=== PATIENT | male | born 1990 | race Caucasian/White ===

== ENCOUNTER 2017-03-01 08:25 | Emergency (ER) | payer OTHER ==
[~2017-03-01] VITALS: Ht 175.3 cm; Wt 80.1 kg
[~2017-03-01 08:25] MED LIST: KEFLEX500 MG PO
[2017-03-01 09:25] LABS: HEMATOCRIT 43.7 % (38.0-50.0); HEMOGLOBIN 15.6 G/DL (12.5-16.6); MCH 28.4 PG (29.0-34.0); MCHC 35.7 G/DL (30.0-36.0); MCV 79.6 FL (86-99); PLATELET COUNT 355 K/uL (156-360); RBC DIS.WIDTH-CV 11.4 % (11.8-14.6); RBC DIS.WIDTH-SD 32.7 % (39-53); RED BLOOD COUNT 5.49 M/uL (4.00-5.50); WHITE BLOOD COUNT 17.2 K/uL (4.1-10.2)
[2017-03-01 09:45] LABS: CHLORIDE 107 mEq/L (99-109); POTASSIUM 4.6 mEq/L (3.7-5.4); SODIUM 141 mEq/L (136-147)
[2017-03-01 09:47] LABS: GLUCOSE 92 mg/dL (70-99)
[2017-03-01 09:51] LABS: CREATININE 1.2 mg/dL (0.6-1.3); GFR ESTIMATE (CALCULATED) > 59 mL/min/ (58.99-99999); UREA NITROGEN (BUN) 14 mg/dL (9-23)
[2017-03-01] MEDS ORDERED: ZOFRAN4 MG PO (11:53)
[2017-03-01 12:12] VITALS: BP 122/67
== END 2017-03-01 12:18 | disposition home or self-care (01) ==
LOC: EME 08:25
PROVIDERS: Physician Assistant
DX: J10.2 Influenza due to other identified influenza virus with gastrointestinal manifestations (principal); R11.2 Nausea with vomiting, unspecified; R19.7 Diarrhea, unspecified
CPT/HCPCS: 80048; 85027; 87651 90; 99281; 99285; J1885; J2405; J7030